=== PATIENT | female | born 1970 | race Caucasian/White ===

== ENCOUNTER 2017-09-28 20:57 | Emergency (ER) | payer MEDICARE ==
[~2017-09-28 20:57] MED LIST: ATIVAN1 MG PO; CARAFATE1 G PO; EFFEXOR75 MG PO; EVAMIST8.1 ML TP; MAXALT MLT10 MG/TAB PO; OMEPRAZOLE40 MG PO; TOPAMAX100 MG PO
[2017-09-28 21:30] LABS: COLOR ORANGE/RED (YELLOW)
[2017-09-28 21:31] LABS: APPEARANCE CLOUDY (CLEAR); BILIRUBIN NEGATIVE (NEGATIVE); GLUCOSE NEGATIVE (NEGATIVE); KETONE NEGATIVE (NEGATIVE); NITRITE NEGATIVE (NEGATIVE); PROTEIN NEGATIVE (NEGATIVE); UROBILINOGEN NORMAL (NORMAL); WHITE CELLS - URINE 0-5 /hpf (0-5)
[2017-09-28 21:32] LABS: BACTERIA FEW /hpf (NONE SEEN); EPITHELIAL CELLS 0-5 /hpf (0-5); MUCUS <1+ /lpf (NONE SEEN); RED CELLS - URINE 25-50 /hpf (0-5)
== END 2017-09-28 23:48 | disposition home or self-care (01) ==
LOC: D.ER 20:57
PROVIDERS: Family Medicine
DX: N20.1 Calculus of ureter (principal)